=== PATIENT | female | born 1945 | race Caucasian/White ===

== ENCOUNTER 2018-01-12 11:57 | Observation (INO) | payer OTHER ==
[2018-01-12 12:15] VITALS: BMI 27.3
--- NOTE | 2018-01-12 12:21 | PDOC ---
History of Present Illness - General Chief Complaint: Diarrhea Stated Complaint: Vomiting/Diarrhea Time Seen by Provider: 01/12/18 12:20 History Source: Patient - History of Present Illness Timing/Duration: reports: getting worse Past History - Past Medical History Allergies/Adverse Reactions: Allergies Allergy/AdvReac Type Severity Reaction Status Date / Time No Known Allergies Allergy Verified 01/12/18 12:12 Home Medications: Ambulatory Orders Candesartan/Hydrochlorothiazid [Atacand Hct 32-25 mg -] 1 tab PO DAILY 01/12/18 Lovastatin 40 mg PO HS 01/12/18 Tramadol HCl 50 mg PO DAILY 01/12/18 COPD: No HTN: Yes Hypercholesterolemia: Yes - Immunization History Immunization Up to Date: Yes - Suicide/Smoking/Psychosocial Hx Smoking History: Never smoked Information on smoking cessation initiated: No Hx Alcohol Use: No Drug/Substance Use Hx: No Substance Use Type: None Review of Systems - Review of Systems Constitutional: No: Chills, Fever ABD/GI: Yes: Diarrhea, Nausea, Vomiting, Abdominal cramping : No: Dysuria *Physical Exam - Vital Signs Last Vital Signs Temp Pulse Resp BP Pulse Ox 98.3 F 83 16 141/80 100 01/12/18 12:12 01/12/18 12:12 01/12/18 12:12 01/12/18 12:12 01/12/18 12:12 - Physical Exam General Appearance: Yes: Appropriately Dressed, Mild Distress HEENT: positive: Normal Voice Neck: positive: Supple Respiratory/Chest: negative: Respiratory Distress Gastrointestinal/Abdominal: positive: Normal Bowel Sounds, Tender (to lower abd diffusely), Soft. negative: Pulsatile Mass, Distended Musculoskeletal: negative: CVA Tenderness Integumentary: positive: Dry, Warm Neurologic: positive: Fully Oriented, Alert, Normal Mood/Affect ED Treatment Course - LABORATORY CBC & Chemistry Diagram: 01/12/18 12:30 01/12/18 12:30 - RADIOLOGY Radiology Studies Ordered: Category Date Time Status ABDOMEN & PELVIS CT W/O CONTR [CT] Stat CT Scan 01/12/18 12:19 Ordered Medical Decision Making - Medical Decision Making 01/12/18 12:23 72-year-old female, history of hypertension, hyperlipidemia, here with diarrhea. Patient states diarrhea started yesterday and since then has had over 40 episodes of non-bloody, watery stool. Had 1 episode of nausea/vomiting this a.m. and has no appetite. Now complaining of generalized weakness. No hematochezia, hematemesis, fever or chills. No recent travel, sick contacts or recent antibiotic use. Patient was seen in the ED yesterday, had negative labs and left AGAINST MEDICAL ADVICE prior to having CAT scan done. See exam R/o colitis AMA yesterday prior to CT, neg labs Stable w/ minimal ttp to lower abd diffusely -IVF -zofran -labs including cdif -CT 01/12/18 15:35 CT read as evidence of mild colitis. Labs within normal limits. Patient has had multiple non-bloody diarrheal episodes in ED and continues to complain of generalized weakness. Remains stable. IV fluid in progress. Cdif neg for toxic and antigen. Will admit at this time for IV abx and dehydration *DC/Admit/Observation/Transfer Diagnosis at time of Disposition: Colitis, Dehydration Diarrhea Qualifiers: Diarrhea type: unspecified type Qualified Code(s): R19.7 - Diarrhea, unspecified - Discharge Dispostion Disposition: HOME Condition at time of disposition: Fair Decision to Admit order: Yes - Referrals - Patient Instructions - Post Discharge Activity
[2018-01-12] MEDS ORDERED: SODIUM CHLORIDE 1,000 ML IV STA (12:56)
[2018-01-12 13:03] LABS: BASO % 0.4 % (0-2.0); EOS % 2.5 % (0-4.5); HEMATOCRIT 40.8 % (32.4-45.2); HEMOGLOBIN 13.7 GM/dL (10.7-15.3); LYMPH % 29.2 % (8-40); MCH 29.5 pg (25.7-33.7); MCHC 33.4 g/dl (32.0-36.0); MEAN CELL VOLUME 88.2 fl (80-96); MEAN PLT VOLUME 9.2 fl (7.5-11.1); MONO % 9.1 % (3.8-10.2); NEUT % 58.8 % (42.8-82.8); PLATELET COUNT 199 K/MM3 (134-434); RBC 4.63 M/mm3 (3.60-5.2); RDW 13.1 % (11.6-15.6); WHITE BLOOD COUNT 7.4 K/mm3 (4.0-10.0)
[2018-01-12 13:23] LABS: ALBUMIN 3.9 g/dl (3.4-5.0); ALK PHOS 63 U/L (45-117); ANION GAP 4 MMOL/L (8-16); BILIRUBIN,TOTAL 0.5 mg/dL (0.2-1); BLOOD UREA NITROGEN 19 mg/dL (7-18); CALCIUM 9.6 mg/dL (8.5-10.1); CHLORIDE 106 mmol/L (98-107); CO2 28 mmol/L (21-32); CREATININE 0.7 mg/dL (0.55-1.3); GLUCOSE,RANDOM 108 mg/dL (74-106); POTASSIUM 4.6 mmol/L (3.5-5.1); SGOT/AST 19 U/L (15-37); SGPT/ALT 34 U/L (13-61); SODIUM 139 mmol/L (136-145); TOT PROT 7.3 g/dl (6.4-8.2)
[2018-01-12 13:27] LABS: URINE APPEARANCE SLCLOUDY; URINE BILIRUBIN NEGATIVE (<2.0 mg/dL); URINE COLOR YELLOW; URINE GLUCOSE (UA) NEGATIVE (NEGATIVE); URINE KETONE NEGATIVE (NEGATIVE); URINE LEUK ESTERASE 3+ (NEGATIVE); URINE NITRITE NEGATIVE (NEGATIVE); URINE PROTEIN NEGATIVE (NEGATIVE); URINE UROBILINOGEN NEGATIVE mg/dL (0.2-1.0)
[2018-01-12 13:29] LABS: EPI CELLS RARE /HPF (FEW); URINE BACTERIA RARE /hpf (NONE SEEN); URINE MUCUS RARE
[2018-01-12] MEDS ORDERED: CIPROFLOXACIN 400 MG/D5W 400 MG/200 ML IVPB IVPB ONE (15:33)
[2018-01-12] MEDS ORDERED: SODIUM CHLORIDE 500 ML IV STA (15:36)
[2018-01-12] MEDS ORDERED: COD LIVER OIL/ZINC OXIDE PASTE 56 GM TUBE TP PRN (17:22)
--- NOTE | 2018-01-12 17:30 | HP ---
CHIEF COMPLAINT: diarrhea PCP:Not on staff (in [place]) HISTORY OF PRESENT ILLNESS: 72 kazakh speaking female who presents with her son and daughter present to the hospital with a chief complaint of diarrhea. Patient states she has had over 100 episodes since thursday night. She states she ate a chicken sandwich arounf 5pm on thursday and started to have diarrhea within an hour. Her whole family had the chicken and although the son thinks it tasted funny she was the only one who had symptoms. patient came to ED yesterday and lhad lab work (WNL) and stool cultures done (pending) but left AMA before having CT scan done. They were given loperamide and she only took it once. They present again today with persistent diarrhea. She had stool cultures sent and C diff sent. C diff negative today. She denies recent antibiotics use. Patient states she continues to have diarrhea about 5 times per hour. She is very uncomfortable and has diffuse abdominal pain when defecating. She had a CT scan done today which shows diffuse colitis. Labs WNL. Vitals WNL. She denies nuasea vomiting fever chills chest pain or shortness of breath. She endorses having to use a diaper. She endorses increased urinary frequency and urgency and having to use a diaper. Denies dysuria or hematuria. UA mildly positive with 3+ LE and 19 WBCs. ER course was notable for: (1)Labs (2)IVF (3)ABx Recent Travel:Denies PAST MEDICAL HISTORY:HTN HLD PAST SURGICAL HISTORY:Denies Social History: Smoking:Denies Alcohol:Denies Drugs: Denies Allergies No Known Allergies Allergy (Verified 01/12/18 12:12) HOME MEDICATIONS: Home Medications Medication Instructions Recorded Candesartan 32mg 1 tab PO DAILY 01/12/18 Lovastatin 40 mg PO HS 01/12/18 Tramadol HCl 50 mg PO DAILY 01/12/18 REVIEW OF SYSTEMS CONSTITUTIONAL: Absent: fever, chills, diaphoresis, generalized weakness, malaise, weight change Present:loss of appetite HEENT: Absent: rhinorrhea, nasal congestion, throat pain, throat swelling, difficulty swallowing, mouth swelling, ear pain, eye pain, visual changes CARDIOVASCULAR: Absent: chest pain, syncope, palpitations, irregular heart rate, lightheadedness , peripheral edema RESPIRATORY: Absent: cough, shortness of breath, dyspnea with exertion, orthopnea, wheezing, stridor, hemoptysis GASTROINTESTINAL: Absent:, abdominal distension, nausea, vomiting, constipation, melena, hematochezia Present:abdominal pain diarrhea GENITOURINARY: Absent: dysuria, frequency, urgency, hesitancy, hematuria, flank pain, genital pain MUSCULOSKELETAL: Absent: myalgia, arthralgia, joint swelling, back pain, neck pain SKIN: Absent: rash, itching, pallor HEMATOLOGIC/IMMUNOLOGIC: Absent: easy bleeding, easy bruising, lymphadenopathy, frequent infections ENDOCRINE: Absent: unexplained weight gain, unexplained weight loss, heat intolerance, cold intolerance NEUROLOGIC: Absent: headache, focal weakness or paresthesias, dizziness, unsteady gait, seizure, mental status changes PSYCHIATRIC: Absent: anxiety, depression, suicidal or homicidal ideation, hallucinations. PHYSICAL EXAMINATION Vital Signs - 24 hr 01/12/18 01/12/18 12:12 16:43 Temperature 98.3 F Pulse Rate 83 Respiratory 16 Rate Blood Pressure 141/80 O2 Sat by Pulse 100 97 Oximetry (%) GENERAL: Awake, alert, and fully oriented, in no acute distress. HEAD: Normal with no signs of trauma. EARS, NOSE, THROAT:Dry mucous membranes. LUNGS: Breath sounds equal, clear to auscultation bilaterally. No wheezes, and no crackles. No accessory muscle use. HEART: Regular rate and rhythm, normal S1 and S2 possible diastolic murmur ( difficult to hear in a very loud ER) ABDOMEN: Soft, obese, nontender, not distended, normoactive bowel sounds, no guarding, no rebound. No suprapubic tenderness MUSCULOSKELETAL: No CVA tenderness. UPPER EXTREMITIES: warm, well-perfused. No peripheral edema. LOWER EXTREMITIES: warm, well-perfused. No calf tenderness. No peripheral edema. NEUROLOGICAL: Cranial nerves II-XII intact. Normal speech. PSYCHIATRIC: Cooperative. Good eye contact. Appropriate mood and affect. SKIN: Warm, dry, normal turgor, normal capillary refill. Laboratory Results - last 24 hr 01/12/18 01/12/18 01/12/18 12:30 12:30 13:15 WBC 7.4 RBC 4.63 Hgb 13.7 Hct 40.8 MCV 88.2 MCH 29.5 MCHC 33.4 RDW 13.1 Plt Count 199 MPV 9.2 Absolute Neuts (auto) 4.3 Neutrophils % 58.8 Lymphocytes % 29.2 D Monocytes % 9.1 Eosinophils % 2.5 D Basophils % 0.4 Nucleated RBC % 0 Sodium 139 Potassium 4.6 Chloride 106 Carbon Dioxide 28 Anion Gap 4 L BUN 19 H Creatinine 0.7 Creat Clearance w eGFR > 60 Random Glucose 108 H Calcium 9.6 Total Bilirubin 0.5 AST 19 ALT 34 Alkaline Phosphatase 63 Total Protein 7.3 Albumin 3.9 Urine Color Yellow Urine Appearance Slcloudy Urine pH 6.0 Ur Specific [place] 1.020 Urine Protein Negative Urine Glucose (UA) Negative Urine Ketones Negative Urine Blood 1+ H Urine Nitrite Negative Urine Bilirubin Negative Urine Urobilinogen Negative Ur Leukocyte Esterase 3+ H Urine WBC (Auto) 19 Urine RBC (Auto) 12 Ur Epithelial Cells Rare Urine Bacteria Rare Urine Mucus Rare CTP: Fatty liver; diffuse colitis ASSESSMENT/PLAN: 72F with history of HTN HLD presents to the hospital with diarrhea for the past [address] scan found to have diffuse colitis: Diarrhea secondary to acute colitis leading to dehydration: Could be due to food poisoning. Place on observation got cipro/flagyl in ED would hold off on further ABx for now unless patient spikes a fever or has WBC count elevation tomorrow IVF Diet as tolerated Bacid BID Desitin for diaper rash f/u Stool Cx from yesterday (different visit) and today C diff negative UTI:Has symptoms of urgency and frequency UA 3+ LE WBCs 19 Given cipro in ED UCx sent will hold off on ABx for now HTN: Patient on candesartan 32mg po daily-not on formulary will start on Losartan 100mg po daily HLD: on lovastatin will change to lipitor which is on formulary FEN: NS @ 100ml/hr no electrolyte issues diet as tolerated PPx: SCDs/Lovenox no GI PPx indicated early ambulation Case discussed with Dr. cox Visit type - Emergency Visit Emergency Visit: Yes Care time: The patient presented to the Emergency Department on the above date and was hospitalized for further evaluation of their emergent condition. - New Patient This patient is new to me today: Yes Date on this admission: 01/12/18 - Critical Care Critical Care patient: No
[2018-01-12] MEDS: SODIUM CHLORIDE 1,000 ML IV SCH (17:40)
--- NOTE | 2018-01-12 17:42 | PN ---
Teaching Attending Note Name of Resident: Calos Hayes ATTENDING PHYSICIAN STATEMENT I saw and evaluated the patient. I reviewed the resident's note and discussed the case with the resident. I agree with the resident's findings and plan as documented. SUBJECTIVE: Patient is a 72yo an french speaking female with PMHx of HTN and HLD who presents with her daughter to the hospital with a chief complaint of diarrhea, which started 1-2 hrs after having a chicken sandwich. Watery diarrhea in nature. She denies having any chills or fever. No shortness of breath. She denies feeling weak. but going constantly to the bathroom. OBJECTIVE: Vital Signs Temperature 98.3 F 01/12/18 12:12 Pulse Rate 83 01/12/18 12:12 Respiratory Rate 16 01/12/18 12:12 Blood Pressure 141/80 01/12/18 12:12 O2 Sat by Pulse Oximetry (%) 97 01/12/18 16:43 GENERAL: Awake, alert, and fully oriented, in no acute distress. HEAD: Normal with no signs of trauma. EYES: Pupils equal, round and reactive to light, extraocular movements intact, sclera anicteric, conjunctiva clear. EARS, NOSE, THROAT: Ears normal, oropharynx clear without exudates. Moist mucous membranes. NECK: Normal range of motion, supple ,no JVD, or masses. LUNGS: Breath sounds equal, clear to auscultation bilaterally. No wheezes, and no crackles. No accessory muscle use. HEART: Regular rate and rhythm, normal S1 and S2 without murmur, rub or gallop. ABDOMEN: Soft, nontender, not distended, normoactive bowel sounds, no guarding, no rebound, no masses. No hepatomegaly or splenomegaly. MUSCULOSKELETAL: Normal range of motion at all joints. No bony deformities or tenderness. No CVA tenderness. EXTREMITIES: 2+ pulses, warm, well-perfused. No cyanosis. No clubbing. No peripheral edema. NEUROLOGICAL: Cranial nerves II-XII intact. Normal speech. gait not observed. PSYCHIATRIC: Cooperative. Good eye contact. Appropriate mood and affect. SKIN: Warm, dry, normal turgor, no rashes or lesions noted, normal capillary refill. CBCD WBC 7.4 K/mm3 (4.0-10.0) 01/12/18 12:30 RBC 4.63 M/mm3 (3.60-5.2) 01/12/18 12:30 Hgb 13.7 GM/dL (10.7-15.3) 01/12/18 12:30 Hct 40.8 % (32.4-45.2) 01/12/18 12:30 MCV 88.2 fl (80-96) 01/12/18 12:30 MCHC 33.4 g/dl (32.0-36.0) 01/12/18 12:30 RDW 13.1 % (11.6-15.6) 01/12/18 12:30 Plt Count 199 K/MM3 (134-434) 01/12/18 12:30 MPV 9.2 fl (7.5-11.1) 01/12/18 12:30 CMP Sodium 139 mmol/L (136-145) 01/12/18 12:30 Potassium 4.6 mmol/L (3.5-5.1) 01/12/18 12:30 Chloride 106 mmol/L (98-107) 01/12/18 12:30 Carbon Dioxide 28 mmol/L (21-32) 01/12/18 12:30 Anion Gap 4 MMOL/L (8-16) L 01/12/18 12:30 BUN 19 mg/dL (7-18) H 01/12/18 12:30 Creatinine 0.7 mg/dL (0.55-1.3) 01/12/18 12:30 Creat Clearance w eGFR > 60 (>60) 01/12/18 12:30 Random Glucose 108 mg/dL (74-106) H 01/12/18 12:30 Calcium 9.6 mg/dL (8.5-10.1) 01/12/18 12:30 Total Bilirubin 0.5 mg/dL (0.2-1) 01/12/18 12:30 AST 19 U/L (15-37) 01/12/18 12:30 ALT 34 U/L (13-61) 01/12/18 12:30 Alkaline Phosphatase 63 U/L (45-117) 01/12/18 12:30 Total Protein 7.3 g/dl (6.4-8.2) 01/12/18 12:30 Albumin 3.9 g/dl (3.4-5.0) 01/12/18 12:30 Urine Test Results Urine Color Yellow 01/12/18 13:15 Urine Appearance Slcloudy 01/12/18 13:15 Urine pH 6.0 (5.0-8.0) 01/12/18 13:15 Ur Specific [place] 1.020 (1.001-1.035) 01/12/18 13:15 Urine Protein Negative (NEGATIVE) 01/12/18 13:15 Urine Glucose (UA) Negative (NEGATIVE) 01/12/18 13:15 Urine Ketones Negative (NEGATIVE) 01/12/18 13:15 Urine Blood 1+ (NEGATIVE) H 01/12/18 13:15 Urine Nitrite Negative (NEGATIVE) 01/12/18 13:15 Urine Bilirubin Negative (<2.0 mg/dL) 01/12/18 13:15 Ur Leukocyte Esterase 3+ (NEGATIVE) H 01/12/18 13:15 Ur Epithelial Cells Rare /HPF (FEW) 01/12/18 13:15 Urine Bacteria Rare /hpf (NONE SEEN) 01/12/18 13:15 Urine Mucus Rare 01/12/18 13:15 Current Medications Generic Name Dose Route Start Last Admin Trade Name Freq PRN Reason Stop Dose Admin Enoxaparin Sodium 40 mg 01/13/18 10:00 Lovenox - SQ DAILY [facility] Sodium Chloride 1,000 mls @ 100 mls/hr 01/12/18 17:30 01/12/18 17:40 Normal Saline - IV 100 mls/hr ASDIR THOM Administration Lactobacillus Acidophilus 1 tab 01/12/18 22:00 Bacid - PO BID [facility] Zinc Oxide 1 applic 01/12/18 22:00 Desitin Diaper Rash Oint - TP BID [facility] Home Medications Medication Instructions Recorded Candesartan Cilexetil [Atacand -] 32 mg PO DAILY 01/12/18 Lovastatin 40 mg PO HS 01/12/18 Tramadol HCl 50 mg PO DAILY 01/12/18 CT abdomen and pelvis: Sequential axial images were obtained from the domes of the diaphragms through the symphysis pubis following the administration of intravenous contrast material. The lung bases are clear. The liver is slightly enlarged. It is hypodense in texture consistent with diffuse fatty infiltration . There are 2 tiny hypodensities within the left lobe that most likely represent cysts, however, they are too small to accurately characterize. The spleen is also mildly enlarged. The pancreas, adrenal glands and kidneys demonstrate no significant abnormalities. The gallbladder is clear. There is no evidence of intra-abdominal or retroperitoneal lymphadenopathy or fluid collections. There is no evidence of pneumoperitoneum, bowel obstruction or intra-abdominal abscess. There is mild thickening of the entire colon that is suspicious for colitis. Clinical correlation and colonoscopic follow-up is recommended. The right colon is less severely involved. There is no evidence of acute appendicitis or diverticulitis. Examination of the pelvis demonstrates no evidence of pelvic masses, fluid collections or lymphadenopathy. The uterus has been removed. There is no evidence of acute bony abnormalities. IMPRESSION: 1. Hepatosplenomegaly and diffuse fatty infiltration of the liver. 2. Mild thickening of the entire colon suspicious for colitis. Clinical correlation and follow-up recommended. Please see above discussion. CTP: Fatty liver; diffuse colitis ASSESSMENT AND PLAN: Patient is 72yo Female with history of HTN, HLD presents to the hospital with watery, non bloody diarrhea for the past 2 days. # Acute watery diarrhea non bloody due to food poisoning , will hydrate the patient at this time. No indication of antibiotic yet. given in ED. one dose of cipro/flagyl. would hold off on further ABx for now unless patient spikes a fever or has elevation of WBC in am. ALso will NOT give any IMODIUM for NOW. since the source of watery diarrhea is not known yet, we could do more harm than good. added Bacid 2x per day, continue IVF Diet as tolerated (bland diet) suggested the patient to have yogurt and rice diet for now. Observation, follow Stool culture. # HTN:continue candesartan 32mg po daily ( Patient's home medication) # Diaper Rash : Desitin DVT Px: SCDs for now
[2018-01-12] MEDS ORDERED: traMADol HCL 50 MG TABLET PO PRN (18:28)
[2018-01-12] MEDS ORDERED: ATORVASTATIN CA 10 MG TABLET (FP) PO SCH (22:00)
[2018-01-12] MEDS ORDERED: ATORVASTATIN CA 10 MG TABLET (FP) ONE (22:39)
[2018-01-12] MEDS: LACTOBACILLUS ACIDOPHILUS 1 TABLET PO SCH (22:47)
[2018-01-12] MEDS: COD LIVER OIL/ZINC OXIDE PASTE 56 GM TUBE TP SCH (22:47)
[2018-01-13] MEDS: SODIUM CHLORIDE 1,000 ML IV SCH ×2 (01:55→17:33)
[2018-01-13 07:13] LABS: BASO % 0.6 % (0-2.0); EOS % 3.2 % (0-4.5); HEMATOCRIT 35.9 % (32.4-45.2); HEMOGLOBIN 11.8 GM/dL (10.7-15.3); LYMPH % 41.8 % (8-40); MCH 29.1 pg (25.7-33.7); MCHC 32.9 g/dl (32.0-36.0); MEAN CELL VOLUME 88.5 fl (80-96); MEAN PLT VOLUME 8.9 fl (7.5-11.1); NEUT % 45.4 % (42.8-82.8); PLATELET COUNT 137 K/MM3 (134-434); RBC 4.05 M/mm3 (3.60-5.2); RDW 13.3 % (11.6-15.6); WHITE BLOOD COUNT 4.6 K/mm3 (4.0-10.0)
[2018-01-13 07:25] LABS: ANION GAP 4 MMOL/L (8-16); BLOOD UREA NITROGEN 9 mg/dL (7-18); CALCIUM 9.1 mg/dL (8.5-10.1); CHLORIDE 111 mmol/L (98-107); CO2 28 mmol/L (21-32); CREATININE 0.5 mg/dL (0.55-1.3); GLUCOSE,RANDOM 94 mg/dL (74-106); MAGNESIUM 2.1 mg/dL (1.8-2.4); PHOSPHOROUS 2.6 mg/dL (2.5-4.9); POTASSIUM 4.1 mmol/L (3.5-5.1); SODIUM 142 mmol/L (136-145)
[2018-01-13] MEDS ORDERED: LOSARTAN POTASSIUM 50 MG TABLET (FP) PO SCH (10:00)
[2018-01-13] MEDS ORDERED: ENOXAPARIN NA (PORCINE) 40 MG/0.4 ML DISP.SYRIN SQ SCH (10:00)
[2018-01-13] MEDS ORDERED: PT OWN MED DRAWER 7, Y5N ONE (10:17)
[2018-01-13] MEDS: LACTOBACILLUS ACIDOPHILUS 1 TABLET PO SCH (10:23)
[2018-01-13] MEDS: COD LIVER OIL/ZINC OXIDE PASTE 56 GM TUBE TP SCH (10:24)
--- NOTE | 2018-01-13 14:37 | PN ---
Teaching Attending Note Name of Resident: Valeria Terrell ATTENDING PHYSICIAN STATEMENT I saw and evaluated the patient. I reviewed the resident's note and discussed the case with the resident. I agree with the resident's findings and plan as documented. SUBJECTIVE: no fever or chills. diarrhea has stopped. no abd pain. OBJECTIVE: NAD CV : RRR lUngs: CTAB ext : no edema ABd: soft, TTP in all quadrants along the distribution of her colon no rebound tenderness or guarding. nl BS. ASSESSMENT AND PLAN: 72 y/o lady with h/o HTN, HLP, and herniated disc who presented with abd pain and diarrhea ad she was found ot have colitis 1- Acute colitis : start levaquin and flagyl sx improved. received cipro and flagyl in ER cont levaquin and flagyl x 5 more days need colonoscopy as out pt . never had one will refer to GI 2- urinary frequency. resolved when diarrhea has stopped. has no dysuria . urine cx was neg on 01/11 . no further action 3- HTN : cont home meds d/c home f/u with GI and PCP
[2018-01-13 15:46] VITALS: BP 130/72; PULSE 62; TEMP 97.6
--- NOTE | 2018-01-13 17:30 | DS ---
Physical Exam: SUBJECTIVE: Patient seen and examined this morning at bedside. Denies any current fevers, chills, chest pain, SOB. OBJECTIVE: Vital Signs Period Temp Pulse Resp BP Sys/Frye Pulse Ox Last 24 Hr 97.6 F-98.4 F 62-70 18-20 117-155/65-87 96-98 PHYSICAL EXAM GENERAL: A&Ox3, NAD. HEAD: NCAT. EYES: PERRL, EOMI. ENT: Oropharynx clear without exudates, MMM. NECK: No JVD. LUNGS: CTA B/L, no wheezes. HEART: Regular rate and rhythm, S1, S2 without murmur. ABDOMEN: Soft, Diffuse tenderness to palpation, nondistended, + bowel sounds, no guarding, no rebound. EXTREMITIES: 2+ pulses, no edema. NEUROLOGICAL: Cranial nerves II through XII grossly intact. Normal speech. SKIN: Warm, dry no rashes or lesions noted. LABS Laboratory Tests 01/12/18 01/12/18 01/12/18 12:30 12:30 13:15 WBC 7.4 RBC 4.63 Hgb 13.7 Hct 40.8 MCV 88.2 MCH 29.5 MCHC 33.4 RDW 13.1 Plt Count 199 MPV 9.2 Absolute Neuts (auto) 4.3 Neutrophils % 58.8 Lymphocytes % 29.2 D Monocytes % 9.1 Eosinophils % 2.5 D Basophils % 0.4 Nucleated RBC % 0 Sodium 139 Potassium 4.6 Chloride 106 Carbon Dioxide 28 Anion Gap 4 L BUN 19 H Creatinine 0.7 Creat Clearance w eGFR > 60 Random Glucose 108 H Calcium 9.6 Phosphorus Magnesium Total Bilirubin 0.5 AST 19 ALT 34 Alkaline Phosphatase 63 Total Protein 7.3 Albumin 3.9 Urine Color Yellow Urine Appearance Slcloudy Urine pH 6.0 Ur Specific [place] 1.020 Urine Protein Negative Urine Glucose (UA) Negative Urine Ketones Negative Urine Blood 1+ H Urine Nitrite Negative Urine Bilirubin Negative Urine Urobilinogen Negative Ur Leukocyte Esterase 3+ H Urine WBC (Auto) 19 Urine RBC (Auto) 12 Ur Epithelial Cells Rare Urine Bacteria Rare Urine Mucus Rare 01/13/18 01/13/18 06:30 06:30 WBC 4.6 RBC 4.05 Hgb 11.8 Hct 35.9 MCV 88.5 MCH 29.1 MCHC 32.9 RDW 13.3 Plt Count 137 D MPV 8.9 Absolute Neuts (auto) 2.1 Neutrophils % 45.4 D Lymphocytes % 41.8 H D Monocytes % 9.0 Eosinophils % 3.2 Basophils % 0.6 Nucleated RBC % 0 Sodium 142 Potassium 4.1 Chloride 111 H Carbon Dioxide 28 Anion Gap 4 L BUN 9 Creatinine 0.5 L Creat Clearance w eGFR > 60 Random Glucose 94 Calcium 9.1 Phosphorus 2.6 Magnesium 2.1 Total Bilirubin AST ALT Alkaline Phosphatase Total Protein Albumin Urine Color Urine Appearance Urine pH Ur Specific [place] Urine Protein Urine Glucose (UA) Urine Ketones Urine Blood Urine Nitrite Urine Bilirubin Urine Urobilinogen Ur Leukocyte Esterase Urine WBC (Auto) Urine RBC (Auto) Ur Epithelial Cells Urine Bacteria Urine Mucus Microbiology 01/12/18 12:32 Stool Salmonella/Shigella Culture - Preliminary NO ENTERIC PATHOGENS, 24 HOURS, ON PRIMARY PLATES 01/12/18 12:32 Stool Yersinia Culture - Preliminary NO ENTERIC PATHOGENS, 24 HOURS, ON PRIMARY PLATES 01/12/18 12:32 Stool Vibrio Culture - Final NO GROWTH OF VIBRIO SPECIES OBTAINED 01/12/18 12:32 Stool Escherichia coli 0157 Culture - Final NO GROWTH OF E COLI 0157 OBTAINED 01/12/18 12:30 Stool Clostridium difficile Antigen (LOUANN) - Final 01/12/18 12:30 Stool Clostridium difficile Toxin Assay - Final IMAGING: -CT A/P with Contrast: Hepatosplenomegaly and diffuse fatty infiltration of the liver. Mild thickening of the entire colon suspicious for colitis. Clinical correlation and follow-up recommended. Please see above discussion. HOSPITAL COURSE: Date of Admission:01/12/18 Date of Discharge: 01/13/18 72 y/o F with PMHx of HTN and HLD presented to the ED with diarrhea after eating chicken sandwichs. A CT of the Abdomen and pelvis was suspicious for colitis. She received one dose of IV Cipro 400mg and one dose of IV Flagyl 500mg. Her diarrhea subsided and she remained afebrile during her stay. She additionally complained of Urinary Urgency and frequency. A UA was done, noted above, and patient continued uring Cirpro. Her home does medications were resumed and her BP was controlled. Her diet was advanced and tolerated, and patient was discharged home on Levaquin and Flagyl for 5 days. Minutes to complete discharge: 38 Discharge Summary Reason For Visit: COLITIS,DEHYDRATION Current Active Problems Colitis (Acute) Dehydration (Acute) Diarrhea (Acute) Condition: Improved - Instructions Diet, Activity, Other Instructions: You were admitted for Diarrhea and a Urinary tract infection. You received a 2 day course of antibiotics and your symptoms resolved. You are being discharged on 2 antibiotics, Levaquin and Flagyl for 5 days. Please take Levaquin once a day and Flagyl every 8 hours. Please follow up with your primary care physician in one week. If you do not have one, you can follow up at the [facility] with Dr. Terrell on Thursday at 2pm. Continue all your other medications as prescribed. Please return to the ER if you have any signs or symptoms of chest pain, shortness of breath, uncontrollable fever, chills, nausea, vomiting, numbness, tingling, or weakness in any part of your body, changes in vision, or slurred speech. Please return to the ER if symptoms persist, worsen, or new symptoms arise. You need to follow up with the Freight Rate Analyst (Dr. Jaimes) for a colonscopy. Referrals: Luis Dumont MD [Staff Physician] - 1 Week (With Dr. Terrell on Thursday) Wen Jaimes DO [Staff Physician] - 2 Weeks Disposition: HOME - Home Medications Comprehensive Discharge Medication List: Ambulatory Orders Candesartan Cilexetil [Atacand -] 32 mg PO DAILY 01/12/18 Lovastatin 40 mg PO HS 01/12/18 Hydrocodone/Acetaminophen [Hydrocodone-Acetamin 5-325 mg] 1 each PO DAILY Metronidazole 500 mg PO Q8H 5 Days #15 tablet 01/13/18 Montelukast Na [Singulair -] 10 mg PO HS 01/13/18 levoFLOXacin [Levaquin -] 500 mg PO DAILY #5 tablet 01/13/18 This patient is new to me today: Yes Date on this admission: 01/14/18 Emergency Visit: Yes ED Registration Date: 01/12/18 Care time: The patient presented to the Emergency Department on the above date and was hospitalized for further evaluation of their emergent condition. Critical Care patient: No - Discharge Referral Referred to [facility] No
== END 2018-01-13 17:39 | disposition home or self-care (01) | DRG 372 ==
LOC: JER 11:57 → JERBED 16:42 → UNDOADMIN 16:42 → INTOOBSV 17:22 → JERBED 17:22 → J5S 23:17 → JERBED 23:17 → J5S 23:19 → UNDODISIN 01-13 17:39
PROVIDERS: ADMIT Internal Medicine; ATTEND Internal Medicine
PROC: 3E03329 Introduction of Other Anti-infective into Peripheral Vein, Percutaneous Approach (ICD-10-PCS; principal; 2018-01-12)
PROC: 3E013GC Introduction of Other Therapeutic Substance into Subcutaneous Tissue, Percutaneous Approach (ICD-10-PCS; 2018-01-12)
PROC: 3E0337Z Introduction of Electrolytic and Water Balance Substance into Peripheral Vein, Percutaneous Approach (ICD-10-PCS; 2018-01-12)
DX: A04.72 Enterocolitis due to Clostridium difficile, not specified as recurrent (principal); N39.0 Urinary tract infection, site not specified; I10 Essential (primary) hypertension; E78.5 Hyperlipidemia, unspecified; E86.0 Dehydration; J98.4 Other disorders of lung; R16.2 Hepatomegaly with splenomegaly, not elsewhere classified; K76.0 Fatty (change of) liver, not elsewhere classified; R21 Rash and other nonspecific skin eruption; R35.0 Frequency of micturition
CPT/HCPCS: 36415; 74177-TC; 80048; 80053; 81003; 81015; 83605; 83690; 83735; 84100; 84484; 85025; 87045; 87046; 87086; 87186; 87324; 87449; 93005; 93010; 96365; 96368; 96372; 96375; 99282-25; 99283-25; C1887; G0378; J7030

== ENCOUNTER 2018-02-10 03:34 | Emergency (ER) | payer OTHER ==
[2018-02-10 04:00] VITALS: BP 140/71; PULSE 72; TEMP 98.1; BMI 65.1
--- NOTE | 2018-02-10 04:29 | PDOC ---
History of Present Illness - General Chief Complaint: Sore Throat Stated Complaint: THROAT PAIN Time Seen by Provider: 02/10/18 04:06 History Source: Patient Exam Limitations: No Limitations - History of Present Illness Initial Comments: 02/10/18 04:57 The patient is a 71 year old female, with a significant past medical history of htn and hld, who presents to the emergency department with sore throat, fatigue , headache, and dry cough today. The patient reports contact with a family member with similar URI like symptoms. She states she can not sleep secondary to her symptoms. She denies taking OTC medications. The patient denies chest pain, shortness of breath, and dizziness. The patient denies fever, chills, nausea, vomit, diarrhea and constipation. The patient denies dysuria, frequency, urgency and hematuria. Allergies: NKDA Past History - Past Medical History Allergies/Adverse Reactions: Allergies Allergy/AdvReac Type Severity Reaction Status Date / Time No Known Allergies Allergy Verified 01/12/18 12:12 Home Medications: Ambulatory Orders Candesartan Cilexetil [Atacand -] 32 mg PO DAILY 01/12/18 Lovastatin 40 mg PO HS 01/12/18 Hydrocodone/Acetaminophen [Hydrocodone-Acetamin 5-325 mg] 1 each PO DAILY Metronidazole 500 mg PO Q8H 5 Days #15 tablet 01/13/18 Montelukast Na [Singulair -] 10 mg PO HS 01/13/18 levoFLOXacin [Levaquin -] 500 mg PO DAILY #5 tablet 01/13/18 COPD: No HTN: Yes Hypercholesterolemia: Yes - Immunization History Immunization Up to Date: Yes - Suicide/Smoking/Psychosocial Hx Smoking History: Never smoked Hx Alcohol Use: No Drug/Substance Use Hx: No Substance Use Type: None Review of Systems - Review of Systems Able to Perform ROS?: Yes Comments:: 02/10/18 04:58 Constitutional: (+) Fatigue. no fevers or chills. HEENT: (+) headache. Sore throat. No dizziness. No congestion. No visual/ hearing disturbances. CVS: no cp or syncope. Resp: (+) cough. no sob. no wheezing. Abdomen: no abdominal pain, nausea or vomiting. Genitourinary: no urinary sx, hematuria. MUSCULOSKELETAL: No joint pain and swelling. No neck or back pain. SKIN: no redness or skin changes, no discharge, no rash. No wounds. Hematologic: no easy bruising/bleeding. NEUROLOGIC: No headache, dizziness, LOC or altered mental status. No weakness, numbness or tingling. All other systems reviewed and negative, or as documented in HPI. *Physical Exam - Vital Signs Last Vital Signs Temp Pulse Resp BP Pulse Ox 98.1 F 72 19 140/71 98 02/10/18 03:45 02/10/18 03:45 02/10/18 03:45 02/10/18 03:45 02/10/18 03:45 - Physical Exam Comments: 02/10/18 04:58 General: Well appearing, awake and alert, NAD. HEENT: NCAT, PERRL, EOMI, clear conjunctiva, anicteric, moist mucus membranes, clear oropharynx. Airway patent, +hoarse voice. Uvula midline. no tonsillar hypertrophy or erythema or oral lesions. No sinus tenderness, TM clear, no pinna tenderness to manipulation. Neck: neck supple, FROM Resp: CTAB, normal and even respirations, no respiratory distress CVS: RRR, no murmurs, 2+ peripheral pulses throughout, no peripheral edema Abdomen: soft, NTND, no peritoneal signs. Back: nontender, normal inspection and ROM MSK: no edema, ALVES x4, ROM intact. No clubbing or cyanosis. normal bulk and tone. Extrem: no calf tenderness Neuro: alert, oriented appropriately; no focal neurologic deficits Skin: warm and well perfused, cap refill <2 sec, normal color Medical Decision Making - Medical Decision Making 02/10/18 04:59 72 YOF with htn and hld p/w sore throat and hoarse voice, malaise tonight. + sick contact VS wnl, no fever well appearing strep neg given benadryl for sleep aid/ tylenol for pain control f/u throat cultures Pt to be discharged in stable condition. Patient and family made aware of impression and plan, return precautions discussed (including but not limited to worsening pain or symptoms), fevers, or signs of infection, chest pain, respiratory distress, inability to tolerate oral intake, dehydration, syncope, or neurologic changes). Follow up with PMD and/or specialist as recommended, follow up information provided, take medications as instructed for duration of time. continue with supportive care, avoid triggers and precipitants. All questions answered to patient's satisfaction and expressed understanding and comfort with this. *DC/Admit/Observation/Transfer Diagnosis at time of Disposition: Sore throat, URI (upper respiratory infection) - Discharge Dispostion Disposition: HOME Condition at time of disposition: Improved Decision to Admit order: No - Referrals Referrals: [facility] [place] [facility] [Provider Group] [facility] [Provider Group] - Patient Instructions Printed Discharge Instructions: DI for Viral Pharyngitis, DI for Viral Upper Respiratory Infection -- Adult Additional Instructions: you have a negative strep throat most likely have a viral illness and sore throat or upper respiratory infection avoid allergens or triggers. stay hydrated, salt gargles, tylenol for pain control f/u primary doctor. return if worsening symptoms as instructed - Post Discharge Activity
[2018-02-10] MEDS ORDERED: ACETAMINOPHEN 325 MG TABLET (FP) PO ONE (04:33)
[2018-02-10] MEDS ORDERED: diphenhydrAMINE HCL 25 MG CAPSULE (FP) PO ONE ×2 (04:33→04:43)
[2018-02-10] MEDS ORDERED: ACETAMINOPHEN 325 MG TABLET (FP) ONE (04:43)
== END 2018-02-10 05:14 | disposition home or self-care (01) ==
LOC: JER 03:34
DX: J02.9 Acute pharyngitis, unspecified (principal); J06.9 Acute upper respiratory infection, unspecified
CPT/HCPCS: 87070; 87430; 99281-25

== ENCOUNTER 2021-09-14 19:46 | Emergency (ER) | payer OTHER ==
[2021-09-14 20:19] VITALS: BP 131/65; PULSE 70; TEMP 98.4; BMI 44.6
== END 2021-09-14 21:58 | disposition home or self-care (01) ==
LOC: JERFT 19:46
DX: S09.90XA Unspecified injury of head, initial encounter (principal); W01.198A Fall on same level from slipping, tripping and stumbling with subsequent striking against other object, initial encounter
CPT/HCPCS: 70450-TC; 72125-TC; 99284-25

== ENCOUNTER 2021-10-12 01:15 | Emergency (ER) | payer OTHER ==
[2021-10-12 01:44] VITALS: BP 127/65; PULSE 64; TEMP 98.3; BMI 33.7
[2021-10-12] MEDS ORDERED: DICYCLOMINE HCL 10 MG/5 ML PO ONE (03:36)
== END 2021-10-12 03:51 | disposition home or self-care (01) ==
LOC: JER 01:15
DX: L97.519 Non-pressure chronic ulcer of other part of right foot with unspecified severity (principal)
CPT/HCPCS: 73630-TC-RT-FY; 99283-25

== ENCOUNTER 2022-05-22 19:41 | Emergency (ER) | payer OTHER ==
[2022-05-22 19:54] VITALS: BP 125/69; PULSE 72; RESP 18; TEMP 98; BMI 35.4
== END 2022-05-22 23:26 | disposition left against medical advice (07) ==
LOC: JER 19:41
DX: R10.30 Lower abdominal pain, unspecified (principal)
CPT/HCPCS: 99283-25

== ENCOUNTER 2022-06-20 01:37 | Emergency (ER) | payer OTHER ==
[2022-06-20 01:46] VITALS: BP 147/79; PULSE 82; RESP 18; TEMP 98.1; BMI 39.0
[2022-06-20 02:39] LABS: EPI CELLS 9 /uL (0-25.1); HYALINE CASTS 1 /uL (0-3.1); PH,URINE 6.5 (5.0-8.0); URINE APPEARANCE CLEAR; URINE BACTERIA 101 /uL (0-1359); URINE BILIRUBIN NEGATIVE (NEGATIVE); URINE COLOR YELLOW; URINE GLUCOSE (UA) NEGATIVE (NEGATIVE); URINE KETONE TRACE (NEGATIVE); URINE LEUK ESTERASE 2+ (NEGATIVE); URINE NITRITE NEGATIVE (NEGATIVE); URINE PROTEIN NEGATIVE (NEGATIVE); URINE RBC 17 /uL (0-23.9); URINE WBC 256 /uL (0-25.8)
[2022-06-20] MEDS ORDERED: CEFTRIAXONE 1 GM in DEXTROSE 5%-WATER - 100 ML IVPB ONE (03:31)
[2022-06-20] MEDS ORDERED: CEFTRIAXONE 1 GM/50 ML BAG ONE (03:43)
[2022-06-20 03:58] LABS: EOS % 1.3 % (0-4.5); HEMATOCRIT 39.9 % (32.4-45.2); HEMOGLOBIN 13.2 GM/dL (10.7-15.3); LYMPH % 34.1 % (8-40); MCH 28.3 pg (25.7-33.7); MCHC 33.1 g/dl (32.0-36.0); MEAN CELL VOLUME 85.4 fl (80-96); MEAN PLT VOLUME 8.6 fl (7.5-11.1); NEUT % 54.6 % (42.8-82.8); PLATELET COUNT 160 10^3/uL (134-434); RBC 4.68 M/mm3 (3.60-5.2); RDW 13.6 % (11.6-15.6); WHITE BLOOD COUNT 5.1 K/mm3 (4.0-10.0)
[2022-06-20 04:19] LABS: ALBUMIN 3.7 g/dl (3.4-5.0)
[2022-06-20 04:22] LABS: CREATININE 0.6 mg/dL (0.55-1.3)
[2022-06-20 04:24] LABS: BILIRUBIN,TOTAL 0.2 mg/dL (0.2-1); TOT PROT 7.1 g/dl (6.4-8.2)
[2022-06-20] MEDS ORDERED: PHENAZOPYRIDINE HCL 100 MG TABLET (FP) PO ONE (05:16)
[2022-06-20] MEDS ORDERED: ACETAMINOPHEN 500 MG TABLET (FP) PO ONE (05:21)
[2022-06-20] MEDS ORDERED: ACETAMINOPHEN 325 MG TABLET (FP) ONE (05:28)
[2022-06-20] MEDS ORDERED: PHENAZOPYRIDINE HCL 100 MG TABLET (FP) ONE (05:28)
== END 2022-06-20 05:43 | disposition home or self-care (01) ==
LOC: JER 01:37
PROC: 3E033GC Introduction of Other Therapeutic Substance into Peripheral Vein, Percutaneous Approach (ICD-10-PCS; principal; 2022-06-20)
DX: N39.0 Urinary tract infection, site not specified (principal)
CPT/HCPCS: 0241U-QW; 36415; 80053; 81003; 83605; 85025; 87086; 96365; 99284-25

== ENCOUNTER 2022-12-28 01:56 | Emergency (ER) | payer OTHER ==
[2022-12-28 02:17] VITALS: BP 133/70; PULSE 71; RESP 18; TEMP 98.3; BMI 39.8
[2022-12-28] MEDS ORDERED: KETOROLAC TROMETHAMINE 30 MG/1 ML VIAL IM ONE (03:07)
[2022-12-28] MEDS ORDERED: KETOROLAC TROMETHAMINE 30 MG/1 ML VIAL ONE (03:24)
[2022-12-28 03:44] LABS: BASO % 0.8 % (0-2.0); EOS % 1.3 % (0-4.5); HEMATOCRIT 40.3 % (32.4-45.2); HEMOGLOBIN 14.1 GM/dL (10.7-15.3); LYMPH % 32.2 % (8-40); MCH 29.7 pg (25.7-33.7); MCHC 34.9 g/dl (32.0-36.0); MEAN CELL VOLUME 85.1 fl (80-96); MEAN PLT VOLUME 8.8 fl (7.5-11.1); MONO % 8.7 % (3.8-10.2); PLATELET COUNT 171 10^3/uL (134-434); RBC 4.74 M/mm3 (3.60-5.2); RDW 13.6 % (11.6-15.6); WHITE BLOOD COUNT 6.6 K/mm3 (4.0-10.0)
[2022-12-28 04:02] LABS: POTASSIUM 4.7 mmol/L (3.5-5.1)
[2022-12-28 04:03] LABS: CALCIUM 10.2 mg/dL (8.5-10.1)
[2022-12-28 04:04] LABS: ALBUMIN 3.9 g/dl (3.4-5.0); BLOOD UREA NITROGEN 17.4 mg/dL (7-18)
[2022-12-28 04:07] LABS: CREATININE 0.8 mg/dL (0.55-1.3)
[2022-12-28 04:08] LABS: BILIRUBIN,TOTAL 0.4 mg/dL (0.2-1)
[2022-12-28 04:09] LABS: TOT PROT 7.4 g/dl (6.4-8.2)
[2022-12-28] MEDS ORDERED: DALBAVANCIN HCL 1,500 MG in DEXTROSE 5%-WATER - 500 ML IVPB ONE (05:28)
[2022-12-28 05:36] LABS: ERYTHROCYTE SEDIMENTATION RATE 11 mm/hr (0-30)
== END 2022-12-28 06:48 | disposition home or self-care (01) ==
LOC: JER 01:56
PROC: 3E03329 Introduction of Other Anti-infective into Peripheral Vein, Percutaneous Approach (ICD-10-PCS; principal; 2022-12-28)
PROC: 3E0233Z Introduction of Anti-inflammatory into Muscle, Percutaneous Approach (ICD-10-PCS; 2022-12-28)
DX: M79.671 Pain in right foot (principal); S91.301S Unspecified open wound, right foot, sequela; R22.41 Localized swelling, mass and lump, right lower limb; L03.115 Cellulitis of right lower limb; X58.XXXS Exposure to other specified factors, sequela
CPT/HCPCS: 36415; 73630-TC-RT-FY; 80053; 83605; 85025; 85379; 85651; 86140; 96365; 96372; 99284-25; J0875

== ENCOUNTER 2023-08-03 01:44 | Emergency (ER) | payer OTHER ==
[2023-08-03 01:50] VITALS: BP 169/88; PULSE 81; RESP 18; TEMP 97.8; BMI 39.6
[2023-08-03] MEDS ORDERED: DALBAVANCIN HCL 500 MG VIAL (RESTRICTED TO ID ONLY) IVPB ONE (02:21)
[2023-08-03] MEDS: DALBAVANCIN HCL 1,500 MG in DEXTROSE 5%-WATER - 500 ML IVPB ONE (02:55)
[2023-08-03 02:57] LABS: BASO % 0.7 % (0-2.0); EOS % 1.4 % (0-4.5); HEMATOCRIT 40.5 % (32.4-45.2); HEMOGLOBIN 13.4 GM/dL (10.7-15.3); LYMPH % 35.1 % (8-40); MCH 28.7 pg (25.7-33.7); MCHC 33.1 g/dl (32.0-36.0); MEAN CELL VOLUME 86.7 fl (80-96); MEAN PLT VOLUME 8.8 fl (7.5-11.1); MONO % 8.9 % (3.8-10.2); NEUT % 53.9 % (42.8-82.8); PLATELET COUNT 197 10^3/uL (134-434); RBC 4.68 M/mm3 (3.60-5.2); RDW 13.5 % (11.6-15.6)
[2023-08-03 03:01] LABS: POTASSIUM 4.2 mmol/L (3.5-5.1)
[2023-08-03 03:03] LABS: ALBUMIN 3.6 g/dl (3.4-5.0); BLOOD UREA NITROGEN 17.6 mg/dL (7-18); CALCIUM 10.1 mg/dL (8.5-10.1)
[2023-08-03 03:06] LABS: CREATININE 0.7 mg/dL (0.55-1.3)
[2023-08-03 03:08] LABS: BILIRUBIN,TOTAL 0.4 mg/dL (0.2-1); TOT PROT 7.2 g/dl (6.4-8.2)
[2023-08-03 04:28] LABS: ERYTHROCYTE SEDIMENTATION RATE 13 mm/hr (0-30)
== END 2023-08-03 04:44 | disposition home or self-care (01) ==
LOC: JER 01:44
DX: M25.571 Pain in right ankle and joints of right foot (principal)
CPT/HCPCS: 36415; 73610-TC-LT-FY; 73610-TC-RT-FY; 80053; 83605; 85025; 85651; 86140; 96365; 99284-25; J0875

== ENCOUNTER 2024-03-03 01:04 | Emergency (ER) | payer OTHER ==
[2024-03-03 01:22] VITALS: BP 141/67; PULSE 66; RESP 18; TEMP 98.1; BMI 32.9
[2024-03-03] MEDS ORDERED: ACETAMINOPHEN 325 MG TABLET (FP) ONE (02:35)
[2024-03-03] MEDS: ACETAMINOPHEN 325 MG TABLET (FP) PO ONE (03:13)
== END 2024-03-03 04:49 | disposition home or self-care (01) ==
LOC: JER 01:04
DX: M25.571 Pain in right ankle and joints of right foot (principal)
CPT/HCPCS: 73610-TC-RT-FY; 73630-TC-RT-FY; 99283-25

== ENCOUNTER 2025-01-19 06:24 | Day surgery (SDC) | payer OTHER ==
[2025-01-13 15:59] VITALS: BMI 35.4
[2025-01-19] MEDS ORDERED: ACETAMINOPHEN 500 MG TABLET (FP) PO PRN (08:44)
[2025-01-19] MEDS ORDERED: DEXAMETHASONE SOD PHOSPHATE 10 MG/1 ML VIAL ONE (12:09)
[2025-01-19] MEDS: LIDOCAINE HCL 1% PRESERVATIVE FREE - 30ML VIAL IJ ONE (12:34)
[2025-01-19] MEDS: IOHEXOL 180 MG/1 ML ML IJ ONE (12:35)
[2025-01-19] MEDS: DEXAMETHASONE SOD PHOSPHATE 10 MG/1 ML VIAL IM ONE ×2 (12:36)
[2025-01-19 12:55] VITALS: BP 108/69; PULSE 68; RESP 16; TEMP 97.5
== END 2025-01-19 13:33 | disposition home or self-care (01) ==
LOC: JASU-SURG 06:24
PROVIDERS: ATTEND Pain Medicine Pain Medicine
PROC: 3E0R3BZ Introduction of Anesthetic Agent into Spinal Canal, Percutaneous Approach (ICD-10-PCS; 2025-01-19)
PROC: 3E0R33Z Introduction of Anti-inflammatory into Spinal Canal, Percutaneous Approach (ICD-10-PCS; principal; 2025-01-19 12:15)
DX: M48.061 Spinal stenosis, lumbar region without neurogenic claudication (principal); M54.16 Radiculopathy, lumbar region
CPT/HCPCS: 76000-TC-FY; J1100